=== PATIENT | female | born 1995 | race Two or more races ===

== ENCOUNTER 2024-04-15 09:00 | Day surgery (SDC) | payer SELFPAY ==
[2024-04-15] MEDS ORDERED: Morphine 4 MG/ML VIAL ONE (10:36)
[2024-04-15] MEDS ORDERED: Dicyclomine 20 MG/2 ML VIAL ONE (10:36)
[2024-04-15] MEDS ORDERED: traMADol HCl 50 MG TAB PO PRN (13:22)
[2024-04-15] MEDS ORDERED: Scopolamine 1 mg/72 hour Patch TOP SCH (13:30)
[2024-04-15] MEDS ORDERED: PROPOFOL 20 ML ONE (13:36)
[2024-04-15] MEDS ORDERED: fentaNYL PF 100 MCG/2 ML SYRINGE ONE (13:36)
[2024-04-15] MEDS ORDERED: Lidocaine 1% PF 5 ML VIAL ONE (13:36)
[2024-04-15] MEDS ORDERED: Rocuronium Bromide 10 MG/ML (10ML VIAL) ONE (13:36)
[2024-04-15 13:48] LABS: Free T4 (Free Thyroxine) 0.81 ng/dL (0.70-1.48)
[2024-04-15] MEDS ORDERED: Ketorolac Tromethamine 30 MG (1 mL) VIAL ONE ×2 (13:56→14:34)
[2024-04-15] MEDS ORDERED: Scopolamine 1 mg/72 hour Patch ONE (13:56)
[2024-04-15] MEDS ORDERED: Potassium Chloride 20 MEQ in Lactated Ringer's 1,000 ML IVPB SCH (14:00)
[2024-04-15] MEDS ORDERED: LevoFLOXacin 750 mg/D5W 750 MG in Premix 1 BAG IVPB SCH (14:00)
[2024-04-15] MEDS ORDERED: Acetaminophen 325 MG TAB PO PRN (14:07)
[2024-04-15] MEDS ORDERED: EPINEPHrine 1 MG/ML VIAL ONE (14:32)
[2024-04-15] MEDS ORDERED: Bupivacaine 0.25% HCL 30 ML VIAL ONE (14:32)
[2024-04-15] MEDS ORDERED: Dexamethasone 20 MG/5 ML VIAL ONE (14:34)
[2024-04-15] MEDS ORDERED: Ondansetron PF 4 MG/2 ML Vial ONE (14:34)
[2024-04-15 14:41] LABS: Thyroid Stimulating Hormone 10.7337 uIU/mL (0.35-4.94)
[2024-04-15] MEDS ORDERED: SUGAMMADEX SODIUM 200 MG/2 ML VIAL ONE (14:51)
[2024-04-15] MEDS ORDERED: fentaNYL 50 mcg/mL 1 mL Vial ONE (15:51)
== END 2024-04-15 16:28 | disposition home or self-care (01) ==
LOC: ERS 09:00 → SDC 13:04
PROVIDERS: ATTEND Specialist
PROC: 0FT44ZZ Resection of Gallbladder, Percutaneous Endoscopic Approach (ICD-10-PCS; principal; 2024-04-15)
DX: K80.12 Calculus of gallbladder with acute and chronic cholecystitis without obstruction (principal); E03.9 Hypothyroidism, unspecified; I34.1 Nonrheumatic mitral (valve) prolapse; Z88.0 Allergy status to penicillin
CPT/HCPCS: 36416; 76705; 84439; 84443; 88304; 96372; 96374; C1889; J0171; J0665; J1100; J1885; J1956; J2272; J2405; J2704; J3010; J3480; J7120